=== PATIENT | female | born 2005 | race Caucasian/White ===

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

== ENCOUNTER 2024-09-27 23:20 | Emergency (ER) | payer BC, SELFPAY ==
[2024-09-27 23:30] VITALS: BP 160/101
[2024-09-27 23:58] LABS: % Basophils 0.4 % (0-2); % Eosinophils 0.9 % (0-6); % Immature Granulocytes 0.2 % (0-0.5); % Lymphocytes 34.7 % (20.5-51.1); % Neutrophils 56.8 % (42.2-75.2); Absolute Eosinophils 0.1 10^3/uL (0-0.7); Absolute Lymphocytes 3.4 10^3/uL (1.2-3.4); Absolute Monocytes 0.7 10^3/uL (0.1-0.6); Absolute Neutrophils 5.5 10^3/uL (1.4-6.5); Hemoglobin 13.4 g/dL (12.0-16.0); Mean Corp Hgb Conc. 36.2 g/dL (33.0-37.0); Mean Corpuscular Hgb 31.5 pg (27.0-31.0); Mean Corpuscular Volume 86.9 fL (81.0-99.0); Mean Platelet Volume 10.3 fL (7.4-10.4); Nucleated Red Blood Cells % 0 %; Platelet Count 267 10^3/uL (130-400); Red Blood Cell Count 4.26 10^6/uL (4.20-5.40); Red Cell Dist. Width 11.8 % (11.5-14.5); White Blood Cell Count 9.7 10^3/uL (4.8-10.8)
[2024-09-28 00:03] LABS: HCG, Serum Qualitative Screen Negative
[2024-09-28 00:12] VITALS: BMI 27.7
[2024-09-28 00:18] LABS: Troponin I < 0.012 ng/ml
[2024-09-28 00:27] LABS: ALT (SGPT) 18 U/L (0-35); AST (SGOT) 21 U/L (14-36); Albumin 4.7 g/dl (3.5-5.0); Alkaline Phosphatase 40 U/L (38-126); Blood Urea Nitrogen 13 mg/dl (7-17); Calcium 10.4 mg/dl (8.4-10.2); Carbon Dioxide 24 mmol/L (22-30); Chloride 108 mmol/L (98-107); Estimated Creatinine Clearance 107 ml/min; Glucose 93 mg/dl (70-99); Potassium 3.7 mmol/L (3.5-5.1); Sodium 142 mmol/L (135-145); Total Bilirubin 0.5 mg/dl (0.2-1.3); Total Protein 7.6 g/dl (6.3-8.2); eGFR > 60.00
[2024-09-28 01:00] VITALS: BP 116/75
--- NOTE | 2024-09-28 01:26 | ED.GENMED ---
History of Present Illness
General
Chief Complaint: Chest Problem
Source: patient
Time Seen by Provider: 09/28/24 00:01
History of Present Illness
History of Present Illness:
Note:
CHIEF COMPLAINT(S)
Chest tightness and bilateral numbness of upper extremities.
HISTORY OF PRESENT ILLNESS
The patient is a 18-year-old female presenting with chest tightness that began around 7 p.m. while she was sitting on her bed. She describes the sensation as 'tight' and notes that it resolved on its own. Following this episode, after taking a
shower, she experienced bilateral numbness in her upper extremities. She denies associated symptoms such as blurred vision, headache, shortness of breath, or abdominal pain. She mentions that her last menstrual period occurred one month ago. The
patient has a history of anxiety and attention-deficit hyperactivity disorder for which she is prescribed Vyvanse. Recently, she is being transitioned from Wellbutrin to Lexapro for anxiety, with a reduction in the Wellbutrin dosage over the past
three weeks and initiation of Lexapro at a low but consistent dose. She reports no anxiety during the current episode and denies experiencing any chills, fear, or events known to provoke anxiety at this time. She maintains normal dietary and
hydration habits.
MEDICATIONS
- Vyvanse for attention-deficit hyperactivity disorder.
- Transitioning from Wellbutrin to Lexapro for anxiety.
PROBLEM LIST
- Acute: Chest tightness, bilateral upper extremity numbness.
- Chronic: Anxiety, attention-deficit hyperactivity disorder.
PLAN
Observe and monitor for any recurrence of symptoms or new developments, especially in relation to anxiety and medication changes. Consider follow-up to re-evaluate the response to the new medication regimen.
DIFFERENTIAL DIAGNOSIS
The Differential Diagnosis includes, in no particular order and is not limited to:
Anxiety attack
Hyperventilation syndrome
Cardiac arrhythmia
Myocardial ischemia
Peripheral neuropathy
Electrolyte imbalance
Medication side effect
Musculoskeletal strain
Panic disorder
SOCIAL DETERMINANTS AFFECTING HEALTH
The patient is currently in the process of adjusting her anxiety medication, which may affect her overall health and well-being.
CARE-UPDATE
09/28/24 - 02:16
No new acute findings noted on chest examination. Continue current management plan.
Disposition:
SUMMARY OF ENCOUNTER
The patient, a 18-year-old female, was seen in the emergency department for an episode of palpitations, chest tightness, and bilateral numbness in her arms. The chest tightness resolved on its own, and the numbness in her arms significantly
improved. An EKG was performed and returned normal results. The visit focused on assessing her response to recent changes in anxiety medications.
DISPOSITION
The patient was discharged home.
FOLLOW-UP INSTRUCTIONS
The patient will follow up with her family doctor to review her prescriptions for Vyvanse, Wellbutrin, and Lexapro.
MEDICAL DECISION MAKING
Number and Complexity of Problems Addressed: The patient presented with acute symptoms of palpitations, chest tightness, and bilateral numbness, which were assessed in the context of her ongoing transition between medications for anxiety and ADHD.
Data: An EKG was performed and was found to be normal, which guided the decision to discharge home.
Risk: Prescription drug management was considered during her visit due to her current regimen of anxiety and ADHD medications. The decision was made to have her follow up with her primary care physician to monitor her medication transition and any
further developments in her symptoms.
Past History
Social History
Tobacco: Non-smoker
Alcohol: None
Drug: None
Phy Exam
Physical Exam
Physical Exam:
Physical Exam
Vital signs and allergy list reviewed and agreed with.
GENERAL: Alert , in minimal apparent distress
EYE: pupils equal, EOMI, anicteric
NECK: Supple, no significant adenopathy. No masses. Trachea midline
ENT: Oropharynx is clear, mmm.
CARDIAC: Regular rate and rhythm . No M/R/G
LUNGS: Clear breath sounds bilaterally, no acute respiratory distress, no wheezes/rales/rhonchi
ABDOMEN: Soft, without focal tenderness, no r/g, no cvat. Normal BSx4q
NEUROLOGICAL: Alert and oriented, no focal neuro deficits
SKIN: Warm and dry, skin intact.
MUSCULOSKELETAL: No edema, well perfused. Moves all 4 extremities
PSYCH: Normal and appropriate interaction.
Course
Orders/Labs/Results
Orders:
Orders
09/27/24 23:33
Electrocardiogram (*1) Urgent
Reason for Study: Chest Pain
EKG- Treatment ONCE
Test Result ONCE
09/27/24 23:45
Complete Blood Count/With Diff Urgent
Comprehensive Metabolic Panel Urgent
HCG, Serum Qualitative Screen Urgent
Troponin I Urgent
09/28/24 00:02
CR Chest - 2 Views Urgent
Comment:
Reason For Exam: cp
Abnormal Lab Results
09/27/24
23:45
MCH 31.5 H pg
(27.0-31.0)
Absolute Monos (auto) 0.7 H 10^3/uL
(0.1-0.6)
Chloride 108 H mmol/L
(98-107)
Calcium 10.4 H mg/dl
(8.4-10.2)
09/27/24 23:45
09/27/24 23:45
Vital Signs
Initial and Last Documented VS:
Initial Vital Signs
Temp Pulse Resp BP Pulse Ox
98.5 F 116 20 160/101 100
09/27/24 23:30 09/27/24 23:30 09/27/24 23:30 09/27/24 23:30 09/27/24 23:30
Last Documented Vital Signs
Temp Pulse Resp BP Pulse Ox
98.5 F 80 16 116/82 97
09/27/24 23:30 09/28/24 03:06 09/28/24 03:06 09/28/24 03:06 09/28/24 03:06
*Pulse Oximetry
Patient hypoxic: no (99% on room air)
*Critical Care Note
Total Time (30-74mins, 75-104mins- exclusive of procedures): Not Applicable
Update Note
Update Note:
SUMMARY OF ENCOUNTER
The patient is a 18-year-old female who presented to the emergency department with symptoms of numbness in both arms, chest tightness, and episodes of heart racing. These symptoms began spontaneously while she was in bed and lasted for approximately
30 to 45 minutes. The numbness in the arms persisted, worsening with movement or bending, while chest tightness and heart racing were intermittent. The patient has a known history of anxiety and ADHD and is under psychiatric care, with recent
adjustments made to her medications. She takes Lexapro and Wellbutrin, among others. Given her symptoms and background, the differential was focused on anxiety A chest X-ray was also ordered for further evaluation.
- My independent interpretation of cardiac labs is that they are reassuring and not indicative of cardiac issues.
- My independent interpretation of vital signs: The trend shows blood pressure and heart rate normalizing with calmer state and oxygen therapy.
The patient was educated on anxiety management strategies and was informed that her symptoms are consistent with anxiety and panic episodes, which are common and manageable. The importance of following her psychiatrists medication plan and reporting
any side effects was emphasized.
The patient is currently on Lexapro, Wellbutrin, and Vyvanse. She is working with her psychiatrist on medication adjustments to better manage her anxiety and ADHD.
Number and Complexity of Problems Addressed:
The patient presented with symptoms consistent with anxiety-induced episodes and potential medication side effects, both of which were thoroughly assessed.
Data:
Risk: The patient was considered at risk for anxiety exacerbation, managed with reassurance and vital sign monitoring. Social determinants such as anxiety and potential medication access issues were considered in her management plan.
ED Attending Note
-
Portions of this chart may have been created with voice recognition software.� Occasional wrong word or��sound alike� substitutions may have occurred due to the inherent limitations of voice recognition software.
Discharge Plan
Departure
Patient Disposition: Home (Routine Discharge)
Date of Disposition: 09/28/24
Time of Disposition: 02:33
Patient with high blood pressure during this ER visit?: No
Discharge Problem:
Palpitations, Paresthesias
Instructions: Hand Numbness, Heart Palpitations
Prescriptions:
No Action
sertraline 25 MG tablet
75 mg PO DAILY
lisdexamfetamine [Vyvanse] 60 MG capsule
60 mg PO DAILY
Referrals:
Sarah Vance MD [Family Provider, Pediatrics]
Activity Restrictions/Additional Instructions:
Thank You for choosing [facility].
It was a pleasure meeting you and taking part in your care. We hope for your continued healing and wellness.
Please read discharge instructions in their entirety. However, they are for general education and may not describe your exact diagnosis at discharge. Information on your ER visit and medical conditions were discussed with you along with appropriate
follow up information...
If indicated, please take your medications as instructed and indicated on discharge paperwork.
Please schedule a follow up appointment as directed. Call to schedule an appointment
Please return to the emergency department with ANY change in, persisting, or worsening of symptoms. If any of your symptoms do not improve, or persist, or become more severe within 6-12 hours, please return to the emergency department for further
care.
Please return to the emergency department if you develop a headache, neck pain/stiffness, fever greater than 100.4F, chest pain, shortness of breath, persistent nausea, vomiting, slurred speech, difficulty walking, numbness/tingling, weakness, signs
of infection or any other symptoms that are worrisome to you.
If you have any questions or concerns please do not hesitate to call the Hospital at or E-mail me directly at [email or web address]
Interventions
Interventions:
*Risk Screen - Suicide Last Done: 09/27/24 23:30
*General Assessment Last Done: 09/27/24 23:30
*Neglect/Abuse Screening Last Done: 09/28/24 02:40
*ED- Fall Risk Assessment Last Done: 09/28/24 00:31
*ED COVID-19 Vaccine History Last Done: 09/28/24 00:11
*Nursing Disposition Last Done: 09/28/24 03:06
ED- Cardiac Assessment Last Done: 09/28/24 00:17
ED- Pulmonary Assessment Last Done: 09/28/24 00:14
Discharge Date and Time
Discharge Date/Time: 09/28/24 03:07
Print Language: HUNGARIAN
[2024-09-28 02:05] VITALS: BP 116/82
[2024-09-28 03:06] VITALS: BP 116/82
== END 2024-09-28 03:07 | disposition home or self-care (01) ==
LOC: EMR 23:20
PROVIDERS: EMERGENCY PHYSICIAN Student in an Organized Health Care Education/Training Program; FAMILY PHYSICIAN Pediatrics
DX: R20.2 Paresthesia of skin (principal); R00.2 Palpitations; R07.89 Other chest pain; F41.0 Panic disorder [episodic paroxysmal anxiety]; R20.0 Anesthesia of skin; F41.9 Anxiety disorder, unspecified; F90.9 Attention-deficit hyperactivity disorder, unspecified type; Z79.899 Other long term (current) drug therapy
CPT/HCPCS: 99283; 71046; 80053; 84484; 84703; 85025; 93005